=== PATIENT | female | born 1995 | race Caucasian/White ===

== ENCOUNTER 2018-06-27 12:04 | Emergency (ER) | payer BC ==
[2018-06-27 12:22] VITALS: BP 103/61
--- NOTE | 2018-06-27 12:52 | UC ---
Skin Complaint HPI - HPI Summary HPI Summary: 22 yo F, presumed hx of eczema, c/o itchy redness to the bilateral face and neck for days. Not improved by application of coconut oil. Has made an appointment w a [employer] for 9 days from now. She denies exposure to any new lotions/creams. Has never been formally dianosed w eczema but brother has severe eczema and she typically gets red dry scales on her eyelids. She has these as well, but this is first time symptoms have spread to face/neck - History of Current Complaint Chief Complaint: UCSkin Time Seen by Provider: 06/27/18 12:43 Stated Complaint: SKIN COMPLAINT Hx Obtained From: Patient Hx Last Menstrual Period: 06/25/18 Onset/Duration: Gradual Onset Skin Exposure Onset/Duration: Days Ago Current Severity: Moderate Pain Intensity: 0 - Allergy/Home Medications Allergies/Adverse Reactions: Allergies Allergy/AdvReac Type Severity Reaction Status Date / Time No Known Allergies Allergy Verified 06/27/18 12:17 Home Medications: Home Medications Norethindrone-E.estradiol-Iron [ 24 Tablet] 1 tab BEDTIME 06/27/18 [ History Confirmed 06/27/18] Review of Systems Skin: Rash Eyes: Negative Respiratory: Negative Cardiovascular: Negative Is Patient Immunocompromised?: No All Other Systems Reviewed And Are Negative: Yes PMH/Surg Hx/FS Hx/Imm Hx Previously Healthy: Yes - Surgical History Surgical History: None - Family History Known Family History: Negative: Cardiac Disease, Diabetes - Social History Alcohol Use: Occasionally Substance Use Type: None Smoking Status (MU): Never Smoked Tobacco - Immunization History Most Recent Tetanus Shot: UTD Physical Exam Triage Information Reviewed: Yes Appearance: Well-Appearing, No Pain Distress, Well-Nourished Vital Signs: Initial Vital Signs Temp 97.4 F 06/27/18 12:17 Pulse 60 06/27/18 12:17 Resp 16 06/27/18 12:17 BP 103/61 06/27/18 12:17 Pulse Ox 99 06/27/18 12:17 Vital Signs Reviewed: Yes Eyes: Positive: Conjunctiva Clear Respiratory: Positive: No respiratory distress, No accessory muscle use Abdomen Description: Negative: Distended Musculoskeletal: Positive: Strength Intact Neurological: Positive: Alert. Negative: Fatigued Psychological Exam: Normal Psychological: Positive: Age Appropriate Behavior Skin: Positive: Other - erythematous dry scaly rash on bilat face, eyelids, superior L neck Course/Dx - Diagnoses Provider Diagnoses: eczema Discharge - Sign-Out/Discharge Documenting (check all that apply): Patient Departure All imaging exams completed and their final reports reviewed: No Studies - Discharge Plan Condition: Stable Disposition: HOME Referrals: No Primary Care Phys,NOPCP [Primary Care Provider] - Additional Instructions: You've been prescribed hydrocortisone cream to be applied twice per day. You may also take benadryl 25 mg (available without prescription) for further relief from itching. - Billing Disposition and Condition Condition: STABLE Disposition: Home
== END 2018-06-27 13:10 | disposition home or self-care (01) ==
LOC: UCCORT 12:04
DX: L30.9 Dermatitis, unspecified (principal)
CPT/HCPCS: 99212; G0463